=== PATIENT | female | born 1975 | race Caucasian/White ===

== ENCOUNTER 2021-04-25 19:05 | Emergency (ER) | payer OTHER ==
[~2021-04-25] VITALS: Ht 160 cm; Wt 81.7 kg
[2021-04-25] MEDS ORDERED: SERTRALINE HCL100 MG PO (19:16)
[2021-04-25] MEDS ORDERED: REMERON15 M2 PO (19:16)
[2021-04-25] MEDS ORDERED: FLEXERIL PO (20:12)
[2021-04-25] MEDS ORDERED: PERCOCET 5-3251 EACH PO (20:12)
[2021-04-25 20:21] VITALS: BP 116/74
== END 2021-04-25 20:21 | disposition home or self-care (01) ==
LOC: M.ERS 19:05
DX: S49.81XA Other specified injuries of right shoulder and upper arm, initial encounter (principal); Z88.2 Allergy status to sulfonamides; X50.9XXA Other and unspecified overexertion or strenuous movements or postures, initial encounter; Y93.89 Activity, other specified; Y92.89 Other specified places as the place of occurrence of the external cause; Y99.8 Other external cause status